=== PATIENT | male | born 1980 | race Caucasian/White ===

== ENCOUNTER 2024-11-14 21:03 | Emergency (ER) | payer BC, SELFPAY ==
[2024-11-14 21:03] VITALS: BMI 29.5
[2024-11-14 21:28] VITALS: BP 149/90; PULSE 66; RESP 18; TEMP 37.1; O2SAT 96
[2024-11-14] MEDS: TETRACAINE PF OP SOL 0.5% 4 ML DRPETTE 1 DROP LEFT EYE (22:16)
[2024-11-14] MEDS: FLUORESCEIN SOD 1 MG STRP LEFT EYE (22:16)
[2024-11-14] MEDS: Erythromycin Op Oint 0.5% 1 GM PACKET LEFT EYE (22:16)
--- NOTE | 2024-11-14 22:18 | PD.EDEYE ---
ED Eye Problem RME/HPI General Chief complaint: Eye Problems Stated complaint: LEFT EYE INJURY Time Seen by Provider: 11/14/24 22:04 Arrival date/time: 11/14/24 21:03 44M with no significant PMH presents to ED with L eye pain/irritation after one if his chickens pecked at it. Patient denies vision changes. Limitations: no limitations Related Data Previous Rx's ?Medication ?Instructions ?Recorded erythromycin 5 mg/gram (0.5 %) eye 0.5 inch ophthalmic (eye) QID 1 11/14/24 ointment week #3.5 grams Allergies Allergy/AdvReac Type Severity Reaction Status Date / Time No Known Allergies Allergy Verified 06/17/17 19:40 Review of Systems Review of Systems Systems Reviewed: All systems reviewed, normal except as documented Constitutional Constitutional: Reports system reviewed and no additional complaints, except as documented, Denies fever(s) and Denies headache(s) Eyes Eyes: Reports as per HPI and Reports irritation ENT Ears, Nose, Mouth, and Throat: Denies disequilibrium and Denies headache(s) Cardiovascular Cardiovascular: Reports system reviewed and no additional complaints, except as documented, Denies chest pain and Denies dyspnea Respiratory Respiratory: Reports system reviewed and no additional complaints, except as documented, Denies cough and Denies dyspnea Gastrointestinal Gastrointestinal: Reports system reviewed and no additional complaints, except as documented, Denies abdominal pain, Denies nausea and Denies vomiting Neurologic Neurologic: Reports system reviewed and no additional complaints, except as documented, Denies confusion, Denies disequilibrium and Denies headache(s) Psychiatric Psychiatric: Denies confusion Past Medical History Past Medical History MUSCULOSKELETAL: Positive Musculoskeletal Disorders (Left clavicle fracture) Social History SMOKING STATUS: Never smoker ED Exam General Limitations: Present no limitations General appearance: Present alert and in no apparent distress Head Head exam: Present atraumatic Eye Eye exam: Present normal appearance, PERRL and EOMI ENT ENT exam: Present normal exam, normal oropharynx and mucous membranes moist Neck Neck exam: Present normal inspection, full ROM and trachea midline Chest Chest inspection: Present normal inspection and symmetric chest wall rise Respiratory Respiratory exam: Present normal lung sounds bilaterally Cardiovascular Cardiovascular exam: Present regular rate, normal rhythm and normal heart sounds Abdominal Exam Abdominal exam: Present soft and normal bowel sounds Extremities Exam Extremities exam: Present normal inspection and full ROM Back Exam Back exam: Present normal inspection and full ROM Neurological Exam Neurological exam: Present alert, oriented X3 and CN II-XII intact Psychiatric Psychiatric exam: Present normal affect and normal mood Skin Skin exam: Present warm, dry, intact and normal color Course Quality Measures none Orders Category Date Time Status ED Eye Irrigation ONCE Care 11/14/24 22:05 Active Serrano Lamp to Bedside X1 Care 11/14/24 22:05 Active Erythromycin Op Oint 0.5% Med 11/14/24 22:05 Discontinued 1 gm LEFT EYE X1 ONE Fluorescein Sodium [Bio-Haley] Med 11/14/24 22:05 Discontinued 1 mg LEFT EYE X1 ONE TETRACAINE Op [place] 0.5% [Pontocaine Op [place] 0.5%] Med 11/14/24 22:05 Discontinued 1 drop LEFT EYE X1 ONE Vital Signs Vital signs: Vital Signs Temperature 98.8 F 11/14/24 21:28 Pulse Rate 66 11/14/24 21:28 Respiratory Rate 18 11/14/24 21:28 Blood Pressure 149/90 H 11/14/24 21:28 Pulse Oximetry (%) 96 11/14/24 21:28 Oxygen Delivery Method Room Air 11/14/24 21:28 O2 at 96% on RA and WNLs Eye MDM Narrative MDM Narrative:: 44M with no significant PMH presents to ED with L eye pain/irritation after one if his chickens pecked at it. Patient denies vision changes. Physical exam reveals normal pupil response and EOM. Patient is afebrile, calm, and alert. Wood's lamp exam reveals small corneal abrasion. Meds and drug and alcohol counsellor given. Patient data External records reviewed:: [facility] previous records Clinical information provided by:: patient Social determinants that could affect healthcare access:: none Patient has the following chronic illnesses:: none How is presenting disease/condition affected by chronic disease/condition?: no chronic disease Evaluation data The following diagnostics were reviewed and interpreted by me:: other (specify) (none) Lab and/or radiology exams considered but not ordered:: not ordered Interpretation Summary: n/a Medications / Prescriptions Medications or Prescriptions considered but not ordered:: ordered Medication administrations:: Medication Administration History Discontinued Medications Erythromycin (Erythromycin Op Oint 0.5% 1 Gm Packet) 1 gm LEFT EYE X1 ONE Stop: 11/14/24 22:06 Last Admin: 11/14/24 22:16 Dose: 1 gm Documented By: OA Co-signed By: Fluorescein Sodium (Fluorescein Sod 1 Mg Strp) 1 mg LEFT EYE X1 ONE Stop: 11/14/24 22:06 Last Admin: 11/14/24 22:16 Dose: 1 mg Documented By: GLENDA Tetracaine HCl (Tetracaine Pf Op [place] 0.5% 4 Ml Drpette) 1 drop LEFT EYE X1 ONE Stop: 11/14/24 22:06 Last Admin: 11/14/24 22:16 Dose: 1 drop Documented By: GLENDA above Consultations Consultation(s) initiated? (list below): No Diagnosis Eye Problem Differential Diagnosis: corneal abrasion, conjunctivitis, acute iritis, hyphema, periorbital cellulitis, subconjunctival hemorrhage, glaucoma, corneal ulcer, ruptured globe and other Most likely diagnosis given after review of the tests above:: corneal abrasion Admission Indicated Admission indicated?: not indicated Admission Request Was there a request for admission?: No Disposition Plan Disposition Plan: Discharge Discharge Attestation Discharge Attestation: The patient and all family members were given an opportunity to ask questions and understood the discharge instructions. Discharge instructions specifically effects, indications for sooner follow up or return to the emergency department, and the expected course of current diagnosis. Patient condition: Stable Discharge Plan Plan Patient Disposition: HOME (Self Care) Discharge Disposition comment: Stable Prescriptions/Referrals Prescriptions/Med Rec: New erythromycin 5 mg/gram (0.5 %) ointment 0.5 inch ophthalmic (eye) QID 7 Days Qty: 3.5 0RF Problem List Clinical Impression: Corneal abrasion Patient/Caregiver Discharge Instructions Education Materials: ED Corneal Abrasion Additional Instructions: Please follow-up with PCP within 24-48 hours and return immediately if symptoms worsen. See eye doctor soon. Print Language: Thai Stand Alone Forms: Patient Portal Info Letter DUNCAN/FARRAH Supervising Physician DUNCAN/FARRAH Supervising Physician: Dr. Evans
== END 2024-11-14 23:12 | disposition home or self-care (01) ==
LOC: SERX 11-15 03:07
PROVIDERS: Emergency Provider Emergency Medicine
DX: S05.02XA Injury of conjunctiva and corneal abrasion without foreign body, left eye, initial encounter (principal); W61.33XA Pecked by chicken, initial encounter
CPT/HCPCS: 99284; A9270